=== PATIENT | female | born 1950 | race Caucasian/White ===

== ENCOUNTER 2016-12-31 17:10 | Observation (INO) | payer OTHER ==
[~2016-12-31] VITALS: Ht 167.6 cm; Wt 69.0 kg
[2016-12-31] MEDS ORDERED: COZAAR50 M1 PO (17:21)
[2016-12-31] MEDS ORDERED: SYNTHROID100 MC1 PO (17:21)
[2016-12-31] MEDS ORDERED: BYSTOLIC5 M1 PO (17:21)
[2016-12-31] MEDS ORDERED: TYLENOL EXTRA500 M1 PO (17:22)
[2016-12-31] MEDS ORDERED: AUGMENTIN 875-1 EAC2 PO (17:22)
[2016-12-31] MEDS ORDERED: CRESTOR10 M1 PO (17:22)
[2016-12-31] MEDS ORDERED: VITAMIN D31000 UNI3 PO (17:23)
[2016-12-31 17:59] LABS: BASO % 0.3 % (0-2); EOS % 2.2 % (0-7); EOSINOPHIL ABSOLUTE COUNT 0.3 tho/cmm (0.0-0.7); IMMATURE GRANULOCYTES ABSOLUTE 0.03 tho/cmm (0-0.03); IMMATURE GRANULOCYTES PERCENT 0.2 % (0-0.3); LYMPH % 24.3 % (20-45); LYMPH ABSOLUTE COUNT 3.1 tho/cmm (0.8-4.5); MCHC MEAN CORPUSCULAR HGB CONC 34.1 % (32.0-36.0); MCV (MEAN CELL VOLUME) 90.9 fl (82.0-96.0); MEAN PLATELET VOLUME 11.3 cmc (9.4-12.4); MONO % 8.8 % (0-12); MONOCYTE ABSOLUTE COUNT 1.1 tho/cmm (0.0-1.2); NEUTROPHIL ABSOLUTE COUNT 8.2 tho/cmm (1.6-8.0); NEUTROPHIL-AUTOMATED 8.2 tho/cmm (1.6-8.0); NEUTROPHILS % 64.2 % (40-80); PLATELET COUNT 212 tho/cmm (150-450); RED BLOOD COUNT 4.84 mil/cmm (4.00-5.20); RED CELL DISTRIBUTION WIDTH 12.9 % (12.4-16.4); WHITE BLOOD COUNT 12.8 tho/cmm (4.0-10.0)
[2016-12-31 18:16] LABS: ANION GAP 10 mmol/L (0-20); BLOOD UREA NITROGEN 11 mg/dl (6-24); CALCIUM 9.2 mg/dl (8.5-10.5); CARBON DIOXIDE-VENOUS 24 mmol/L (22-32); CHLORIDE 111 mmol/l (96-110); CREATININE 1.05 mg/dl (0.50-1.10); GLUCOSE 89 mg/dL (70-110); SODIUM 141 mmol/L (135-145); eGFR VALUE FOR BLACK 64 mL/Min
[2016-12-31 18:23] LABS: POTASSIUM 4.1 mmol/L (3.7-5.1)
--- NOTE | 2017-01-01 11:07 | NUR ---
VIRTUAL CARE NOTE: PT RESTING ON BED, STATES FEELING OK, HER ARM STILL RED AND SWELLING YET. PER IMS TOLD PT SHE WILL STAY HERE TODAY FOR IV ABX, POSSIBLE DC HOME TOMORROW. PT DENIES ANY NEEDS OR QUESTIONS AT THIS TIME.
--- NOTE | 2017-01-02 09:49 | NUR ---
VIRTUAL CARE NOTE: PT DRESSED READY FOR DISCHARGE INSTRUCTION, AT BEDSIDE. INFORMATION GIVEN TO PT, PT DENIES QUESTIONS. INFORMED FLOOR NURSE DISCHARGE TEACHING DONE.
== END 2017-01-02 10:15 ==
LOC: EDMED 17:10 → EMR2 19:48 → 5WD 19:48
PROVIDERS: Nurse Practitioner Family; ADMIT Internal Medicine
DX: L03.114 Cellulitis of left upper limb (principal); I10 Essential (primary) hypertension; S51.851A Open bite of right forearm, initial encounter; W55.01XA Bitten by cat, initial encounter; E78.5 Hyperlipidemia, unspecified; E03.9 Hypothyroidism, unspecified
CPT/HCPCS: J0295; J7030